=== PATIENT | female | born 1960 | race Caucasian/White ===

== ENCOUNTER 2017-07-25 22:56 | Inpatient (IN) | payer MEDICARE ==
--- OUTSIDE RECORDS SUMMARY | 2017-07-25 23:00 | XMS | Clinical Summary ---
:1960 Author Organization [facility] Address [address] [place] [address] Phone Care Team Providers Name Role Phone , Primary Care Provider Unavailable Allergies Not on File Current Medications Not on file Active Problems Not on file Social History Tobacco Use Types Packs/Day Years Used Date Never Assessed Sex Assigned at Date Recorded Not on file Last Filed Vital Signs Not on file Plan of Treatment Not on file Results Not on filefrom Last 3 Months
[2017-07-25 23:59] LABS: Lactic Acid - Sepsis 1.1 mmol/L (0.5-2.2)
[2017-07-26] MEDS ORDERED: Fentanyl 100 MCG/2 ML VIAL ONE ×2 (00:10→02:57)
[2017-07-26] MEDS ORDERED: Ondansetron HCl/PF 4 MG/2 ML Vial ONE (00:33)
[2017-07-26] MEDS ORDERED: PHENYLEPHRINE-NS 100 MCG/ML 10 ML SYRINGE ONE (00:33)
[2017-07-26] MEDS ORDERED: Propofol 200 MG/20 ML VIAL ONE (00:33)
[2017-07-26] MEDS ORDERED: Glycopyrrolate 0.2 MG/ML 5 ML SYRINGE ONE (00:33)
[2017-07-26] MEDS ORDERED: Succinylcholine Chloride 20 MG/ML 10 ml SYRINGE FS ONE (00:33)
[2017-07-26] MEDS ORDERED: Dexamethasone 20 MG/5 ML VIAL ONE (00:33)
[2017-07-26] MEDS ORDERED: Lidocaine 2% PF 10 ML AMP (For Epidural Use) ONE (00:33)
[2017-07-26] MEDS ORDERED: Ondansetron HCl/PF 4 MG/2 ML Vial IVP PRN (02:00)
[2017-07-26] MEDS ORDERED: Promethazine HCl 25 MG/ML VIAL IM PRN ×2 (02:00→03:59)
[2017-07-26] MEDS ORDERED: HYDROmorphone 2 MG/ML VIAL SLOW IVP PRN (02:00)
[2017-07-26] MEDS ORDERED: Promethazine HCl 25 MG/ML VIAL SLOW IVP PRN (02:00)
[2017-07-26] MEDS ORDERED: Promethazine HCl 25 MG/ML VIAL ONE (02:57)
[2017-07-26 04:06] VITALS: BMI 38.6
[2017-07-26] MEDS: D5 1/2 NS w/20 mEq KCL 1,000 ML IV SCH ×3 (05:06→18:06)
[2017-07-26] MEDS: Acetaminophen 1,000 MG in Premix Bag 1 BAG IVPB SCH ×4 (05:08→23:49)
--- NOTE | 2017-07-26 05:16 | HP ---
DATE OF ADMISSION: 07/26/2017 CHIEF COMPLAINT: Abdominal pain. HISTORY OF PRESENT ILLNESS: Patient is a 57-year-old, morbidly obese, white female. She gives a hi story of laparoscopic gastric bypass surgery in 2000. Her preoperative weight was 308 pounds. Her current weight is 222 pounds. She gives a history of sudden onset of diffuse abdominal pain at abou t 4:30 p.m. today. The pain was intense, and she presented to the emergency room. She states that the pain only abates momentarily when she receives intravenous pain medication, then it recurs. She has been nauseated, but has not vomited. Laboratory studies reveal essentially normal CBC. On her chemistry profile, however, she has evidence of early acidosis with a low CO2 level. Her creatinin e is slightly elevated at 1.1. CT scan reveals swirling of the mesentery consistent with an interna l hernia versus volvulus. PAST MEDICAL HISTORY: 1. Morbid obesity. 2. Bipolar disorder. 3. History of migraines. 4. Degenerative joint disease. 5. Degenerative disk disease. 6. Psoriatic arthritis. PAST SURGICAL HISTORY: She had anterior cervical spine surgery about [address] Ferrera. S he had a laparoscopic gastric bypass in 2000 in [place]. She previously had an open cholecystectomy . She also has a history of tonsillectomy and carpal tunnel surgery. ALLERGIES: Are to VICODIN, CODEINE, PENICILLIN, and CLINDAMYCIN. MEDICATIONS: Include Trileptal, Klonopin, Wellbutrin, gabapentin, BuSpar, nortriptyline and tramado l. PERSONAL AND SOCIAL HISTORY: She lives in [place] with her sister. She is single with no children . She does not smoke and does not drink alcohol. She is retired. PRIMARY CARE PHYSICIAN: Dr. Arenas. REVIEW OF SYSTEMS: A 10-system review is obtained and is otherwise negative. FAMILY HISTORY: Noncontributory. PHYSICAL EXAMINATION: VITAL SIGNS: She is afebrile. Vital signs within normal limits. GENERAL: She is a well developed, well nourished, obese, white female, resting in bed, in no acute distress. She is alert and oriented x3. Sister is present at bedside. HEAD, EYES, EARS, NOSE, AND THROAT: Unremarkable. NECK: Supple, without mass or tenderness. LUNGS: Clear to auscultation throughout. CARDIAC: Regular rate and rhythm without murmur. ABDOMEN: Obese and more or less soft. She does appear to have diffuse abdominal tenderness. EXTREMITIES: Unremarkable. IMAGING: CT scan does confirm swirling of the mesentery, and what appears to be a dilated gastric r emnant. ASSESSMENT: The patient with suspected internal hernia following gastric bypass surgery. PLAN: Diagnostic laparoscopy this evening. I have discussed the operation in detail with the patie nt as well as potential risks. She understands and agrees to proceed with surgery at this time.
[2017-07-26 09:13] LABS: #Eosinphils 0.2 thou/uL (0.0-0.7); #Lymphocytes 0.8 thou/uL (1.20-3.40); #Monocytes 0.8 thou/uL (0.11-0.59); #Neutrophils 8.6 thou/uL (1.40-6.50); %Basophils 0.1 % (0.0-1.0); %Eosinophils 1.6 % (0.0-10.0); %Lymphocytes 7.6 % (21.0-51.0); %Monocytes 7.3 % (0.0-10.0); Hematocrit 43.4 % (36.0-47.0); Mean Platelet Volume 8.2 fL (7.4-10.4); Red Blood Cell (RBC) Count 4.65 mill/uL (4.20-5.40); White Blood Cell (WBC) Count 10.3 thou/uL (4.8-10.8)
[2017-07-26 09:38] LABS: Anion Gap 12 mmol/L (10-20); BUN (Urea Nitrogen) 10 mg/dL (9.8-20.1); Calc. Creatinine Clearance 135 mL/min (70-130); Calcium 8.3 mg/dL (7.8-10.44); Carbon Dioxide 22 mmol/L (22-29); Chloride 111 mmol/L (98-107); Estimated GFR-MDRD 82
[2017-07-26] MEDS: Ketorolac Tromethamine 30 MG/ML VIAL IVP SCH ×3 (10:28→23:40)
[2017-07-26] MEDS: Famotidine/PF 20 mg/2ml Vial SLOW IVP SCH ×2 (10:28→23:49)
[2017-07-26] MEDS: Enoxaparin Sodium 40 MG/0.4 ML SYRINGE SC SCH (10:54)
[2017-07-26] MEDS: Famotidine 20 MG TAB PO SCH (10:59)
[2017-07-26] MEDS: Ondansetron HCl/PF 4 MG/2 ML Vial IVP PRN (23:40)
[2017-07-27] MEDS: Famotidine 20 MG TAB PO SCH ×3 (00:15→21:27)
[2017-07-27] MEDS ORDERED: HYDROcodone/Acetaminophen 7.5/325 mg Tablet PO PRN ×2 (02:34)
[2017-07-27] MEDS: Ketorolac Tromethamine 30 MG/ML VIAL IVP SCH ×4 (03:20→21:28)
[2017-07-27 05:44] LABS: #Basophils 0.1 thou/uL (0.0-0.2); #Eosinphils 0.1 thou/uL (0.0-0.7); #Lymphocytes 1.4 thou/uL (1.20-3.40); #Monocytes 0.5 thou/uL (0.11-0.59); #Neutrophils 3.9 thou/uL (1.40-6.50); %Basophils 0.9 % (0.0-1.0); %Eosinophils 1.8 % (0.0-10.0); %Lymphocytes 23.4 % (21.0-51.0); %Monocytes 8.2 % (0.0-10.0); Hematocrit 41.2 % (36.0-47.0); Mean Platelet Volume 7.5 fL (7.4-10.4)
[2017-07-27 06:07] LABS: Anion Gap 9 mmol/L (10-20); BUN (Urea Nitrogen) 7 mg/dL (9.8-20.1); Calc. Creatinine Clearance 141 mL/min (70-130); Calcium 8.4 mg/dL (7.8-10.44); Carbon Dioxide 21 mmol/L (22-29); Chloride 114 mmol/L (98-107); Estimated GFR-MDRD 86
[2017-07-27] MEDS: D5 1/2 NS w/20 mEq KCL 1,000 ML IV SCH ×3 (06:11→23:59)
[2017-07-27] MEDS: Ondansetron HCl/PF 4 MG/2 ML Vial IVP PRN ×2 (08:00→08:52)
[2017-07-27] MEDS: Famotidine/PF 20 mg/2ml Vial SLOW IVP SCH ×2 (08:21→22:26)
[2017-07-27] MEDS: Enoxaparin Sodium 40 MG/0.4 ML SYRINGE SC SCH (08:51)
[2017-07-27] MEDS ORDERED: SUMAtriptan Succinate 6 MG/0.5 ML VIAL SC PRN (10:37)
[2017-07-28] MEDS: Ketorolac Tromethamine 30 MG/ML VIAL IVP SCH ×4 (02:35→20:05)
[2017-07-28] MEDS: D5 1/2 NS w/20 mEq KCL 1,000 ML IV SCH ×2 (04:35→16:15)
[2017-07-28 06:30] LABS: #Eosinphils 0.2 thou/uL (0.0-0.7); #Lymphocytes 1.8 thou/uL (1.20-3.40); #Monocytes 0.6 thou/uL (0.11-0.59); #Neutrophils 3.8 thou/uL (1.40-6.50); %Basophils 0.7 % (0.0-1.0); %Eosinophils 3.2 % (0.0-10.0); Hematocrit 38.8 % (36.0-47.0); Mean Platelet Volume 7.1 fL (7.4-10.4); Red Blood Cell (RBC) Count 4.15 mill/uL (4.20-5.40); White Blood Cell (WBC) Count 6.4 thou/uL (4.8-10.8)
[2017-07-28 06:55] LABS: Anion Gap 9 mmol/L (10-20); BUN (Urea Nitrogen) 4 mg/dL (9.8-20.1); Calc. Creatinine Clearance 148 mL/min (70-130); Calcium 8.5 mg/dL (7.8-10.44); Carbon Dioxide 24 mmol/L (22-29); Chloride 113 mmol/L (98-107); Estimated GFR-MDRD 90
[2017-07-28] MEDS: Famotidine 20 MG TAB PO SCH ×2 (08:15→20:05)
[2017-07-28] MEDS: Enoxaparin Sodium 40 MG/0.4 ML SYRINGE SC SCH (10:32)
[2017-07-28] MEDS: Famotidine/PF 20 mg/2ml Vial SLOW IVP SCH ×2 (10:34→20:06)
[2017-07-29] MEDS: D5 1/2 NS w/20 mEq KCL 1,000 ML IV SCH ×2 (00:20→05:46)
[2017-07-29] MEDS: Ketorolac Tromethamine 30 MG/ML VIAL IVP SCH ×2 (01:45→08:40)
[2017-07-29 05:45] LABS: #Eosinphils 0.3 thou/uL (0.0-0.7); #Lymphocytes 1.5 thou/uL (1.20-3.40); #Monocytes 0.6 thou/uL (0.11-0.59); #Neutrophils 4.3 thou/uL (1.40-6.50); %Basophils 0.4 % (0.0-1.0); %Eosinophils 4.4 % (0.0-10.0); %Monocytes 8.2 % (0.0-10.0); Hematocrit 38.5 % (36.0-47.0); Mean Platelet Volume 7.4 fL (7.4-10.4); Red Blood Cell (RBC) Count 4.16 mill/uL (4.20-5.40); White Blood Cell (WBC) Count 6.7 thou/uL (4.8-10.8)
[2017-07-29 07:42] VITALS: TEMP 98.4
[2017-07-29] MEDS: Famotidine 20 MG TAB PO SCH (08:40)
[2017-07-29] MEDS: Famotidine/PF 20 mg/2ml Vial SLOW IVP SCH (09:28)
[2017-07-29] MEDS: Enoxaparin Sodium 40 MG/0.4 ML SYRINGE SC SCH (11:07)
[2017-07-29 11:37] VITALS: BP 142/90
--- NOTE | 2017-07-29 19:20 | DIS ---
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 OPERATION PERFORMED: Attempted laparoscopy with conversion to laparotomy and lysis of adhesions. ADMISSION HISTORY: The patient is a 57-year-old morbidly obese white female. She is status post la paroscopic gastric bypass several years previously. She also has a history of an open cholecystecto my. She presented to the hospital complaining of severe abdominal pain. CT scan revealed swirled m esentery potentially consistent with an internal hernia or volvulus. I recommended urgent operation . HOSPITAL COURSE: She was taken to the operating room on the night of her presentation and underwent laparoscopy, which was converted to laparotomy. She had a process that I could not visualize or re duce laparoscopically. Upon conversion to laparotomy, I recognized that this was a single dense adh esive band between the segment of the small bowel and the retroperitoneum that led to a complete bow el obstruction. There were mesenteric changes consistent with ischemia. After lysing one single ad hesive band, I was able to run the bowel the rest of the way. I was able to identify each of the 3 limbs. Postoperatively, she has had an uneventful course. She initially was on ice chips, which was advanc ed to clear liquids and subsequently to full liquids. She has not vomited since surgery and notes t hat her pain is much better and her abdomen feels better than it did before surgery. She denies any significant pain. Bowel function has returned. Today, she is afebrile with normal vital signs. H er incision appears to be well healed. There is an area of maceration and one central crease that t ransverses her incision at the level of the umbilicus. This was cleansed with peroxide today and a dry gauze dressing was applied. Her subcutaneous drain was removed today also. She was discharged home with instructions to follow up with myself for a staple removal at 2 weeks o ut from her surgery. She has tramadol at home and therefore she is given no prescription at this ti oh. She is instructed to shower daily and place a dry gauze dressing in the portion of the incision near her pannicular crease. Activity restrictions were discussed with her as well as dietary advan cement.
--- NOTE | 2017-07-30 13:44 | OP ---
DATE OF PROCEDURE: 07/25/2017 PREOPERATIVE DIAGNOSES: Small-bowel obstruction, abdominal pain, history of gastric bypass. POSTOPERATIVE DIAGNOSES: Small-bowel obstruction, abdominal pain, history of gastric bypass with a single dense adhesive band causing the obstruction. OPERATION PERFORMED: Diagnostic laparoscopy converted to laparotomy with lysis of adhesions. SURGEON: Patrick Chilel MD ANESTHESIA: General endotracheal. INDICATIONS: The patient is a 57-year-old morbidly obese white female. She gives a history of a la paroscopic gastric bypass a few years ago. She presents this time, complaining of severe abdominal pain. CT scan revealed swirling of the mesentery consistent with an internal hernia. Recommend lap aroscopic evaluation. Given her history of bypass it is suspicious of possible Sequeira hernia or m esenteric defect hernia. DESCRIPTION OF OPERATION: Informed consent was obtained. The patient was taken to the operating ro om where general endotracheal anesthesia was obtained with the patient in supine position. Abdomen was prepped with ChloraPrep and draped in sterile fashion. Local anesthetic was infiltrated and 5-m m infraumbilical incision was created through which a Veress needle was passed into the peritoneal c avity and pneumoperitoneum established using carbon dioxide up to a pressure of 15 mmHg and a 5 mm t rocar port was passed through this same incision. Laparoscopic camera was passed through this port and under direct vision, I placed two additional 5 mm ports, one on either side of the abdomen. There were fairly dense adhesions from prior open cholecystectomy. This made it difficult to examin e the abdominal cavity as I needed to. I began taking down these adhesions in order to get a better view of the abdominal structures. I then began to inspect the small bowel to determine the source of potential obstruction. There see med to be an area that was fixed in the right lower quadrant. I first identified the Louie limb as i t extended downwards towards the jejunojejunostomy. I then turned my attention to the cecum and libia ntified the terminal ileum. As I worked retrograde along the terminal ileum, I got to a level that I could no longer mobilize. Because the patient's persistent obesity as well as dilated bowel, I co uld not adequately see because of the problem and determined that this would need to be converted to laparotomy. A midline incision was created and dissection was carried through skin and subcutaneous tissue. Dis section was then carried into the abdominal cavity. I was able to carefully identify the small christina l with what turned out to be a single dense adhesive band. This was pulling the small bowel down to the retroperitoneum in the right lower quadrant. After ensuring that this was simply an adhesion, divided with electrocautery and the obstruction was immediately resolved. I was able to identify an d trace each of the 3 segments of bowel (the Louie limb, the biliary limb, and the entire common limb ). There was no evidence for further obstructive phenomenon. The fascia was closed in the midline with a running suture of loop #1 PDS. The wound was thoroughly irrigated with saline. Due to the depth of the patient's subcutaneous fat, I placed a drain using a #19 round fluted drain. This was secured in the right lower quadrant with a 3-0 nylon suture. Th e subcutaneous tissue was then closed with a running suture of 3-0 Vicryl. Skin edges approximated with skin marie. There were no complications. The patient tolerated the procedure well and was t aken to recovery room in stable condition.
== END 2017-07-29 15:17 | disposition home or self-care (01) | DRG 335 ==
LOC: ERS 22:56 → OBSVTOIN 07-26 00:55 → SURG B 07-26 00:55
PROVIDERS: ADMIT Specialist; ATTEND Specialist
PROC: 0DN80ZZ Release Small Intestine, Open Approach (ICD-10-PCS; principal; 2017-07-26)
DX: K56.52 Intestinal adhesions [bands] with complete obstruction (principal); K55.019 Acute (reversible) ischemia of small intestine, extent unspecified; E87.2 Acidosis; E66.01 Morbid (severe) obesity due to excess calories; Z98.84 Bariatric surgery status; Z90.49 Acquired absence of other specified parts of digestive tract; Z88.1 Allergy status to other antibiotic agents; Z88.5 Allergy status to narcotic agent; Z88.0 Allergy status to penicillin; K56.2 Volvulus; Z68.38 Body mass index [BMI] 38.0-38.9, adult; K46.9 Unspecified abdominal hernia without obstruction or gangrene
CPT/HCPCS: 36415; 80048; 83605; 85025; 99285; J0131; J1100; J1170; J1650; J1885; J2001; J2405; J2550; J2704; J3010; S0028

== ENCOUNTER 2018-05-06 08:52 | Outpatient (CLI) | payer MEDICARE ==
--- NOTE | 2018-05-12 10:32 | MMO ---
BILATERAL SCREENING MAMMOGRAM: History: Screening. Comparison: 04-07-12 Technique: Bilateral screening CC and MLO mammograms were performed. This study is interpreted with t he assistance of computer aided detection. FINDINGS: Since the comparison examination there is a cluster of heterogeneous calcifications in the right alma st upper outer quadrant. Also new from the comparison examination is a smaller cluster of heterogeneo us calcification in the left breast upper outer quadrant. Breast are heterogeneously dense. There is fibroglandular density. No abnormal mass. IMPRESSION: BIRADS 0 - additional imaging evaluation needed. Bilateral cluster of heterogeneous breast calcificat ions require further investigation. Spot compression magnification views are recommended. POS: CL
== END 2018-05-06 08:53 | disposition home or self-care (01) ==
LOC: SCSRAD 08:52
PROVIDERS: ATTEND Family Medicine
DX: Z12.31 Encounter for screening mammogram for malignant neoplasm of breast (principal); R92.1 Mammographic calcification found on diagnostic imaging of breast
CPT/HCPCS: 77067

== ENCOUNTER 2018-05-22 08:54 | Outpatient (CLI) | payer MEDICARE | END 2018-05-22 08:55 | disposition home or self-care (01) | LOC: BICMAMMO 08:54 | PROVIDERS: ATTEND Family Medicine | DX: R92.1 Mammographic calcification found on diagnostic imaging of breast (principal) | CPT/HCPCS: 77066; G0279 ==

== ENCOUNTER → 2018-06-03 | Day surgery (SDC) | payer MEDICARE ==
--- NOTE | 2018-06-03 09:24 | MMO ---
STEREOTACTIC-GUIDED BIOPSY RIGHT BREAST MICROCALCIFICATIONS SURGICAL SPECIMEN MAMMOGRAPHY RIGHT DIAGNOSTIC MAMMOGRAM POST BIOPSY: TECHNIQUE: After explaining the procedure and answering all questions, the microcalcification cluster in the rig ht breast was visualized. Sterile technique, buffered local anesthesia, stereotactic guidance, and a lateral approach were used to carefully advance an 18-gauge vacuum-assisted biopsy needle into the m icrocalcification cluster. Position was confirmed. A total of 6 core specimens were obtained withou t difficulty. Mammographic evaluation of the surgical specimen shows most of the calcifications to be present in th e specimen. Localization clip was placed in the biopsy bed under stereotactic guidance. The needle was removed. The patient tolerated the procedure well and was eventually dismissed in good condition . Postprocedure mammogram shows almost all of the microcalcifications to have been removed. Localizati on clip is in good position in the biopsy bed. IMPRESSION: Technically successful stereotactic-guided biopsy right breast microcalcifications. Pathology is saad dominguez. POS: CL
== END ==
LOC: MAMMO 06:49
PROVIDERS: ATTEND Family Medicine
PROC: 0HBT3ZX Excision of Right Breast, Percutaneous Approach, Diagnostic (ICD-10-PCS; principal; 2018-06-03)
DX: N60.21 Fibroadenosis of right breast (principal); D24.1 Benign neoplasm of right breast; Z79.899 Other long term (current) drug therapy; Z88.0 Allergy status to penicillin; Z88.5 Allergy status to narcotic agent; Z88.8 Allergy status to other drugs, medicaments and biological substances
CPT/HCPCS: 19081; 76098; 88305; 88341; 88342